=== PATIENT | female | born 1945 ===

== ENCOUNTER 2023-10-20 11:35 | Emergency (ER) | payer MEDICARE, OTHER, SELFPAY ==
[2023-10-20 11:37] VITALS: BP 101/80
[2023-10-20 12:23] LABS: % Basophils 0.7 % (0-2); % Eosinophils 2.6 % (0-6); % Immature Granulocytes 0.4 % (0-0.5); % Lymphocytes 14.1 % (20.5-51.1); % Monocytes 10.3 % (1.7-9.3); % Neutrophils 71.9 % (42.2-75.2); Absolute Basophils 0.1 10^3/uL (0-0.2); Absolute Eosinophils 0.2 10^3/uL (0-0.7); Absolute Lymphocytes 1.1 10^3/uL (1.2-3.4); Absolute Monocytes 0.8 10^3/uL (0.1-0.6); Absolute Neutrophils 5.5 10^3/uL (1.4-6.5); Hematocrit 35.5 % (37.0-47.0); Hemoglobin 12.5 g/dL (12.0-16.0); Mean Corp Hgb Conc. 35.2 g/dL (33.0-37.0); Mean Corpuscular Hgb 30.3 pg (27.0-31.0); Nucleated Red Blood Cells % 0 %; Platelet Count 190 10^3/uL (130-400); Red Blood Cell Count 4.13 10^6/uL (4.20-5.40); Red Cell Dist. Width 11.7 % (11.5-14.5); White Blood Cell Count 7.7 10^3/uL (4.8-10.8)
[2023-10-20 12:39] LABS: ALT (SGPT) 15 U/L (0-35); AST (SGOT) 21 U/L (14-36); Albumin 4.4 g/dl (3.5-5.0); Alkaline Phosphatase 64 U/L (38-126); Blood Urea Nitrogen 19 mg/dl (7-17); Calcium 9.3 mg/dl (8.4-10.2); Carbon Dioxide 25 mmol/L (22-30); Chloride 102 mmol/L (98-107); Glucose 76 mg/dl (70-99); Lipase 131 U/L (23-300); Potassium 4.2 mmol/L (3.5-5.1); Sodium 134 mmol/L (135-145); Total Bilirubin 0.5 mg/dl (0.2-1.3); Total Protein 6.5 g/dl (6.3-8.2); eGFR > 60.00
[2023-10-20 13:08] VITALS: BP 135/64
[2023-10-20 13:10] VITALS: BP 135/64; BMI 27.1
--- NOTE | 2023-10-20 13:17 | ED.GENMED ---
History of Present Illness
General
Chief Complaint: Abdominal Pain
Time Seen by Provider: 10/20/23 13:06
History of Present Illness
History of Present Illness:
78-year-old female with history of hyperlipidemia presents to the emergency department for evaluation of waxing and waning lower abdominal pain has been ongoing for the past 3 days. No associated fevers or chills. Denies any nausea, vomiting,
diarrhea. No history of intra-abdominal surgery. Was seen at urgent care where UA showed trace leuks/blood
Review of Systems
Review of Systems
Allergies reviewed?: Yes
All Other Systems: ROS reviewed and negative except as documented in HPI and ROS
Phy Exam
Physical Exam
Physical Exam:
GEN: Well appearing, NAD, WDWN
Eyes: PERRLA, EOMs intact, no scleral icterus
HENT: NCAT, oral mucosa moist
Lungs: CTAB, no wheezes, rales, rhonchi, normal chest wall excursion
Cardiac: Regular rate
Abdomen: Soft, tenderness to suprapubic/LLQ, no rigidity or peritoneal signs
Neuro: AO x 3
MSK: No gross deformity or ecchymosis. No edema. No digital clubbing
Skin: No rashes, petechiae. Normal color, no pallor or jaundice.
Psych: Calm, cooperative, proper hygiene
Course
Orders/Labs/Results
Orders:
Orders
10/20/23 12:02
Complete Blood Count/With Diff Urgent
Comprehensive Metabolic Panel Urgent
Lipase Urgent
10/20/23 13:16
CT Abd/Pel (IV only)-[facility] only Urgent
Comment:
Reason For Exam: lower abd pain
10/20/23 16:46
Amoxicillin 875 mg/Clav 125 mg [Augmentin 875 mg/125 mg] 1 tablet PO NOW STA
Abnormal Lab Results
10/20/23
12:02
RBC 4.13 L 10^6/uL
(4.20-5.40)
Hct 35.5 L %
(37.0-47.0)
Absolute Lymphs (auto) 1.1 L 10^3/uL
(1.2-3.4)
Absolute Monos (auto) 0.8 H 10^3/uL
(0.1-0.6)
Lymphocytes % 14.1 L %
(20.5-51.1)
Monocytes % 10.3 H %
(1.7-9.3)
Sodium 134 L mmol/L
(135-145)
BUN 19 H mg/dl
(7-17)
10/20/23 12:02
10/20/23 12:02
Vital Signs
Initial and Last Documented VS:
Initial Vital Signs
Temp Pulse Resp BP Pulse Ox
98.3 F 65 18 101/80 98
10/20/23 11:37 10/20/23 11:37 10/20/23 11:37 10/20/23 11:37 10/20/23 11:37
Last Documented Vital Signs
Temp Pulse Resp BP Pulse Ox
97.5 F 82 16 136/81 99
10/20/23 17:23 10/20/23 17:23 10/20/23 17:23 10/20/23 17:23 10/20/23 17:23
MDM/Problems Addressed
MDM/Problems Addressed:
Imaging reveals acute diverticulitis. The patient has a nonperitoneal exam and labs are reassuring, will discharge on a course of Augmentin, reinforced importance of
*Critical Care Note
Total Time (30-74mins, 75-104mins- exclusive of procedures): Not Applicable
ED Attending Note
-
Portions of this chart may have been created with voice recognition software.� Occasional wrong word or��sound alike� substitutions may have occurred due to the inherent limitations of voice recognition software.
Discharge Plan
Departure
Patient Disposition: Home (Routine Discharge)
Date of Disposition: 10/20/23
Time of Disposition: 16:46
Patient with high blood pressure during this ER visit?: No
Discharge Problem:
Acute diverticulitis
Instructions: Clear Liquid Diet, Diverticulitis (DC)
Prescriptions:
New
amoxicillin-pot clavulanate 875-125 mg tablet
1 tab PO BID Qty: 19 0RF
Referrals:
Raina Juárez MD [Family Provider] -
Interventions
Interventions:
*Risk Screen - Suicide Last Done: 10/20/23 11:37
*General Assessment Last Done: 10/20/23 11:37
*Neglect/Abuse Screening Last Done: 10/20/23 11:37
ED- Fall Risk Assessment Last Done: 10/20/23 13:10
*ED COVID-19 Vaccine History Last Done: 10/20/23 13:10
*Nursing Disposition Last Done: 10/20/23 17:23
BT-Werdmq-Mkyxthytpa Assessment Last Done: 10/20/23 13:10
Discharge Date and Time
Discharge Date/Time: 10/20/23 17:24
Print Language: TELUGU
[2023-10-20] MEDS: AUGMENTIN 875 MG/125 MG 1 TABLET PO (17:19)
[2023-10-20 17:23] VITALS: BP 136/81
== END 2023-10-20 17:24 | disposition home or self-care (01) ==
LOC: EMR 11:35
PROVIDERS: Emergency Medicine; EMERGENCY PHYSICIAN Emergency Medicine; FAMILY PHYSICIAN Internal Medicine
DX: K57.32 Diverticulitis of large intestine without perforation or abscess without bleeding (principal); E78.5 Hyperlipidemia, unspecified
CPT/HCPCS: 99285; 74177; 80053; 83690; 85025; Q9967

== ENCOUNTER → 2024-04-11 14:36 | Outpatient (REF) | payer MEDICARE, OTHER, SELFPAY | LOC: RCS 14:36 | PROVIDERS: ATTENDING PHYSICIAN Internal Medicine Cardiovascular Disease; FAMILY PHYSICIAN Internal Medicine | DX: I35.8 Other nonrheumatic aortic valve disorders (principal); I51.7 Cardiomegaly | CPT/HCPCS: 93306 ==